=== PATIENT | male | born 1990 | race American Indian/Alaskan Native ===

== ENCOUNTER 2021-01-21 06:21 | Emergency (ER) | payer SELFPAY ==
[2021-01-21 06:27] VITALS: BP 135/76
[2021-01-21] MEDS ORDERED: IBUPROFEN 800 MG TAB PO ONE (08:00)
--- NOTE | 2021-01-21 08:05 | Emergency Department Report ---
HPI - General Chief Complaint: Dental/Oral Time Seen by Provider: 01/21/21 07:51 - [facility] HPI: Room 29 The patient is a 30-year-old male present with a chief complaint toothache. The patient states for the past day and a half he has had constant pain from a tooth on the lower left side. Patient denies any preceding trauma. Patient denies history of fever. Patient states the pain radiates up the left side of his face. Patient currently gives his pain a score of 10/10. The patient drove himself to the emergency department and there are no visitors present ED Past Medical Hx - Past Medical History Previous Medical History?: No - Surgical History Past Surgical History?: No - Family History Family history: no significant - Social History Smoking Status: Current Every Day Smoker (1/5 pack/day) Substance Use Type: None (Denies illicit drug use), Alcohol (Occasional) - Medications Home Medications: Home Medications Medication Instructions Recorded Confirmed Last Taken Type HYDROcodone/APAP 5-325 [Alto 1 - 2 each PO Q6HR PRN #14 tablet 01/21/21 Unknown Rx 5/325] Ibuprofen [Motrin 800 MG tab] 800 mg PO Q8HR PRN #20 tablet 01/21/21 Unknown Rx Penicillin V Potassium 500 mg PO Q6H #28 tablet 01/21/21 Unknown Rx ED Review of Systems ROS: Stated complaint: JAW PAIN Other details as noted in HPI Constitutional: denies: fever Eyes: denies: eye pain ENT: dental pain Respiratory: no symptoms reported Physical Exam - Physical Exam Vital Signs: Vital Signs 01/21/21 06:24 Temperature 98.3 F Pulse Rate 62 Respiratory 17 Rate Blood Pressure 135/76 [Left] O2 Sat by Pulse 100 Oximetry Physical Exam: GENERAL: The patient is well-developed well-nourished male lying on stretcher not appearing to be in acute distress. [] HEENT: Normocephalic. Atraumatic. Extraocular motions are intact. Painful tooth #19 with evidence of caries. No gingival erythema or swelling appreciated. Patient handling secretions. Normal phonation NECK: Supple. Trachea midline CHEST/LUNGS:There is no respiratory distress noted. SKIN: There is no rash. There is no edema. There is no diaphoresis. NEURO: The patient is awake, alert, and oriented. The patient is cooperative. GCS 15. The patient has normal speech ED Course Vital Signs 01/21/21 06:24 Temperature 98.3 F Pulse Rate 62 Respiratory 17 Rate Blood Pressure 135/76 [Left] O2 Sat by Pulse 100 Oximetry ED Medical Decision Making - Differential Diagnosis Dental pain Critical care attestation.: If time is entered above; I have spent that time in minutes in the direct care of this critically ill patient, excluding procedure time. ED Disposition Clinical Impression: Toothache Disposition: HOME / SELF CARE / HOMELESS Is pt being admited?: No Does the pt Need Aspirin: No Condition: Stable Instructions: Acute Pain, Adult Additional Instructions: Return to the emergency department should you develop worsening symptoms, inability to tolerate food or liquids, high fever or any other concerns Prescriptions: Ibuprofen [Motrin 800 MG tab] 800 mg PO Q8HR PRN #20 tablet PRN Reason: Pain, Moderate (4-6) HYDROcodone/APAP 5-325 [Alto 5/325] 1 - 2 each PO Q6HR PRN #14 tablet PRN Reason: Pain Penicillin V Potassium 500 mg PO Q6H #28 tablet Referrals: [facility] [Outside] - [place] Time of Disposition: 08:10
== END 2021-01-21 08:14 | disposition home or self-care (01) ==
LOC: ED 06:21
DX: K08.89 Other specified disorders of teeth and supporting structures (principal); F17.290 Nicotine dependence, other tobacco product, uncomplicated; Z79.899 Other long term (current) drug therapy
CPT/HCPCS: 99282